=== PATIENT | female | born 1995 | race Caucasian/White ===

== ENCOUNTER → 2021-04-16 | Outpatient (CLI) | payer OTHER ==
--- NOTE | 2021-04-21 21:14 | SLE ---
[facility] [place] [address] POLYSOMNOGRAPHY STUDY Name: HOMA GALAN [facility]: [id number] Admission: 04/16/21 Attend Phys: Christopher Jaimes MD Discharge: Date of : 89 Report #: [id number] THIS REPORT FOR: cc: Marta Gant Linda J. DO Khan, Aman U. MD ~ cc: Christopher Jaimes MD DATE OF SERVICE: 04/17/2021 SLEEP STUDY ATTENDING PHYSICIAN: Dr. Christopher Jaimes. The patient is 25 years old who weighs 392 pounds with a BMI of 65.2. The patient's [place] score was 9. The patient underwent diagnostic sleep study performed at [facility]. During the night study, the patient spent 573 minutes in bed and slept for 530 minutes with a sleep efficiency of 92%. Sleep latency was 14.2 minutes with a REM latency of 173 minutes. Sleep architecture showed normal stage I sleep, increased stage II sleep, normal slow wave and slightly reduced REM sleep, which was 17% of total sleep time. During the night study, the patient had no apneas, but 24 hypopneas. The patient's AHI was 2.7 per hour with a REM AHI of 14.2 per hour and a supine AHI of 7 per hour. EKG monitoring revealed an average heart rate of 78 beats per minute with a maximum of 109 beats per minute. No sustained arrhythmias observed. PLMS were seen at index of 7 per hour and 1 per hour caused EEG arousals. Nocturnal oximetry study revealed no clinically significant nocturnal hypoxia. Average oxygen saturation was 96%, lowest was 87%. Due to low AHI, the patient did not meet the split night criteria for CPAP initiation. IMPRESSION: 1. Overall, no clinically significant sleep disordered breathing. The patient's AHI for the entire night was 2.7 per hour. Mild REM sleep related hypopneas were observed. 2. No clinically significant PLMS. 3. No clinically significant nocturnal hypoxia. [facility] [address] [address] POLYSOMNOGRAPHY STUDY Name: HOMA GALAN Room #: REG [facility]#: [id number] Admission: 04/16/21 Attend Phys: Christopher Jaimes MD Discharge: Date of : 89 Report #: [id number] RECOMMENDATIONS: 1. The patient did not meet the split night criteria for CPAP initiation due to low AHI. 2. Weight loss is strongly advised. 3. Avoid PEDIATRIC PHYSICIAN depressants. 4. Cautioned regarding driving when sleepy or sleep deprived. <ELECTRONICALLY SIGNED> By: Conner Bains MD 04/21/21 [id number] Conner Bains MD /nt
== END ==
LOC: SLEEPLAB 17:05
PROVIDERS: ATTEND Surgery
DX: Z01.812 Encounter for preprocedural laboratory examination (principal); G47.33 Obstructive sleep apnea (adult) (pediatric); Z20.822 Contact with and (suspected) exposure to COVID-19